=== PATIENT | female | born 1955 | race Caucasian/White ===

== ENCOUNTER 2017-03-14 06:41 | Inpatient (IN) | payer BC ==
[~2017-03-14 06:41] MED LIST: Acetaminophen 500 MG Tab PO SCH; Famotidine 20 MG/2 ML SDV IVPUSH SCH; Ketorolac 30 MG/ML SDV IVPUSH SCH; Scopolamine 1.5 MG Transdermal Patch TRDERM SCH; ceFAZolin 2 GM in Premix Bag 1 BAG IV SCH; oxyCODONE ER 20 MG TAB.ER PO SCH
[2017-03-14] MEDS: Lactated Ringers 1,000 ML IV SCH ×2 (06:59→12:37)
[2017-03-14] MEDS ORDERED: Ondansetron 4 MG/2 ML SDV ONE (07:26)
[2017-03-14] MEDS ORDERED: Midazolam 1 MG/ML 2 ML SDV ONE (07:26)
[2017-03-14] MEDS ORDERED: Lidocaine 2% 5 ML SDV ONE (07:26)
[2017-03-14] MEDS ORDERED: Propofol 200 MG/20 ML SDV ONE (07:26)
[2017-03-14] MEDS ORDERED: diphenhydrAMINE 50 MG/ML SDV ONE (07:26)
[2017-03-14] MEDS ORDERED: Dexamethasone 4 MG/ML 5 ML MDV ONE (07:26)
[2017-03-14] MEDS ORDERED: fentaNYL 100 MCG/2 ML SDV ONE (07:26)
[2017-03-14] MEDS ORDERED: Ropivacaine 49.25 ML, Ketorolac 30 MG, EPINEPHrine 0.5 MG, cloNIDine 80 MCG in Sodium C... INJECT ONE (07:40)
--- NOTE | 2017-03-14 07:54 | PCM.PREANE ---
Preanesthetic Assessment - Procedure Proposed Procedure: Right Total knee Arthroplasty - Anesthesia/Transfusion/Family Hx Anesthesia History: Prior Anesthesia Reaction Other Type of Anesthesia Reaction Comment: REports motion sickness with hyst, with GB they used patch-went well Family History of Anesthesia Reaction: No Transfusion History: No Prior Transfusion(s) Additional History: Used scopolamine in past with success. - Review of Systems General: No Symptoms Pulmonary: Other (sleep apnea ; Uses CPAP) Cardiovascular: No Symptoms Gastrointestinal: No Symptoms Neurological: No Symptoms Other: Reports: None - Physical Assessment NPO Status Date: 03/13/17 NPO Status Time: 23:00 O2 Sat by Pulse Oximetry: 97 Respiratory Rate: 16 Vital Signs: Last Vital Signs Temp 97.3 F 03/14/17 06:48 Pulse 85 03/14/17 06:48 Resp 16 03/14/17 06:48 BP 119/78 03/14/17 06:48 Pulse Ox 97 03/14/17 06:48 Height: 5 ft 4 in Weight: 207 lb ASA Class: 2 Mental Status: Alert & Oriented x3 Airway Class: Mallampati = 3 Thyro-Mental Finger Breadths: 3 Mouth Opening Finger Breadths: 2 ROM/Head Extension: Limited/Partial Lungs: Clear to Auscultation, Normal Respiratory Effort Cardiovascular: Regular Rate, Regular Rhythm, No Murmurs - Allergies Allergies/Adverse Reactions: Allergies Allergy/AdvReac Type Severity Reaction Status Date / Time No Known Drug Allergies Allergy Other Verified 03/14/17 07:37 - Blood Blood Available: Yes Product(s) Available: PRBC (T and S) - Anesthesia Plan Pre-Op Medication Ordered: Other (per surgeon cocktail ordered) - Acknowledgements Anesthesia Type Planned: Spinal (sedation as needed) Pt an Appropriate Candidate for the Planned Anesthesia: Yes Alternatives and Risks of Anesthesia Discussed w Pt/Guardian: Yes Pt/Guardian Understands and Agrees with Anesthesia Plan: Yes Additional Comments: present with interview and exam; consent signed. PreAnesthesia Questionnaire HEENT History: Reports: None Cardiovascular History: Reports: None Respiratory History: Reports: Sleep Apnea Other Respiratory History: uses CPAP Gastrointestinal History: Reports: None Genitourinary History: Reports: None BIOFUELS MANAGER History: Reports: None Other OB/BYN History: Hyst with frederick oophorectomy (hx: breast cancer) Musculoskeletal History: Reports: Fracture Other Musculoskeletal History: hx of compound fx of radius/ulna and fx of tib- fib Neurological History: Reports: None, Other (See Below) Other Neuro History: hx of motion sickness Psychiatric History: Reports: None Endocrine/Metabolic History: Reports: Obesity/BMI 30+ Hematologic History: Reports: None Immunologic History: Reports: None Oncologic (Cancer) History: Reports: Breast Dermatologic History: Reports: None - Past Surgical History Head Surgeries/Procedures: Reports: None HEENT Surgical History: Reports: Tonsillectomy Cardiovascular Surgical History: Reports: None Respiratory Surgical History: Reports: None GI Surgical History: Reports: Cholecystectomy, Colonoscopy Other GI Surgeries/Procedures: Lap Cholecystectomy Female Surgical History: Reports: Breast Biopsy, Breast Reduction, Hysterectomy Other Female Surgeries/Procedures: Vaginal Lap assisted hysterectomy with Bilateral oophorectomy, breast lumpectomy x3, hx breast cancer, breast reconstruction Endocrine Surgical History: Reports: None Neurological Surgical History: Reports: None Musculoskeletal Surgical History: Reports: Arthroscopic Knee, Shoulder Surgery Other Musculoskeletal Surgeries/Procedures:: Right Shoulder surgery Oncologic Surgical History: Reports: Biopsy of Breast Other Oncologic Surgeries/Procedures: Breast lumpectomy for cancer - SUBSTANCE USE Smoking Status *Q: Former Smoker Tobacco Use Within Last Twelve Months: Cigarettes Other Tobacco Use Within Last Twelve Months: Smoked 15 yrs, Quit ' Days Per Week of Alcohol Use: 1 Number of Drinks Per Day: 1 Total Drinks Per Week: 1 Recreational Drug Use History: No - HOME MEDS Home Medications: Home Meds Ascorbic Acid [Vitamin C] 1,000 mg PO DAILY 08/16/14 [History] Calcium Carbonate [Calcium] 1,250 mg PO DAILY 08/16/14 [History] Cholecalciferol (Vitamin D3) [Vitamin D3] 2,000 tab PO DAILY 08/16/14 [History] Fish Oil/Plover-3 Fatty Acids [Fish Oil 1,000 MG] 1 tab PO DAILY 08/16/14 [ History] Resveratrol 100 mg PO DAILY 11/20/14 [History] Turmeric Root Extract [Turmeric] 450 mg PO ASDIRECTED 10/07/15 [History] Cyanocobalamin (Vitamin B12) [Vitamin B12] 100 mcg PO DAILY 03/09/17 [History] Loperamide HCl [Imodium A-D] 1 tab PO ASDIRECTED PRN 03/09/17 [History] Phentermine HCl 30 mg PO DAILY 03/09/17 [History] metFORMIN HCl [Metformin HCl] 2 tab PO ACDINNER 03/09/17 [History] - CURRENT (IN HOUSE) MEDS Current Meds: Current Medications Acetaminophen (Tylenol Extra Strength) 1,000 mg PO ONARRIVE [facility] Last Admin: 03/14/17 07:00 Dose: 1,000 mg Famotidine (Pepcid) 40 mg IVPUSH ONARRIVE [facility] Last Admin: 03/14/17 07:00 Dose: 40 mg Cefazolin Sodium/Dextrose 2 gm (/ Premix) 50 mls @ 100 mls/hr IV ONCALL YUE Lactated Ringer's (Ringers, Lactated) 1,000 mls @ 100 mls/hr IV ASDIRECTED YUE Last Admin: 03/14/17 06:59 Dose: 100 mls/hr Ketorolac Tromethamine (Toradol) 30 mg IVPUSH ONARRIVE [facility] Last Admin: 03/14/17 07:02 Dose: 30 mg Oxycodone HCl (Oxycontin) 20 mg PO ONARRIVE [facility] Last Admin: 03/14/17 06:59 Dose: 20 mg Scopolamine (Transderm-Scop) 1.5 mg TRDERM ONARRIVE [facility] Last Admin: 03/14/17 07:01 Dose: 1.5 mg Tranexamic Acid (Cyklokapron) 4,000 mg IV SEECOMMENT YUE Discontinued Medications Dexamethasone (Dexamethasone) Confirm Administered Dose 20 mg .ROUTE .STK-MED ONE Stop: 03/14/17 07:27 Diphenhydramine HCl (Benadryl) Confirm Administered Dose 50 mg .ROUTE .STK-MED ONE Stop: 03/14/17 07:27 Fentanyl (Sublimaze) Confirm Administered Dose 100 mcg .ROUTE .STK-MED ONE Stop: 03/14/17 07:27 Ropivacaine 49.25 ml/Ketorolac Tromethamine 30 mg/Epinephrine HCl 0.5 mg/ Clonidine HCl 80 mcg/ Sodium Chloride 100 mls @ 50 mls/min INJECT ONETIME ONE Stop: 03/14/17 07:41 Lidocaine (Xylocaine-Mpf 2%) Confirm Administered Dose 5 ml .ROUTE .STK-MED ONE Stop: 03/14/17 07:27 Midazolam HCl (Versed 1 Mg/Ml) Confirm Administered Dose 2 mg .ROUTE .STK-MED ONE Stop: 03/14/17 07:27 Ondansetron HCl (Zofran) Confirm Administered Dose 4 mg .ROUTE .STK-MED ONE Stop: 03/14/17 07:27 Propofol (Diprivan 20 Ml) Confirm Administered Dose 800 mg .ROUTE .STK-MED ONE Stop: 03/14/17 07:27 Tranexamic Acid (Cyklokapron) Confirm Administered Dose 4,000 mg .ROUTE .STK- MED ONE Stop: 03/14/17 07:30
[2017-03-14] MEDS ORDERED: fentaNYL 100 MCG/2 ML SDV IVPUSH PRN (08:56)
[2017-03-14] MEDS ORDERED: Phenylephrine 1% 10 MG/ML SDV ONE (09:03)
[2017-03-14] MEDS ORDERED: Loperamide 2 MG Cap PO PRN (09:19)
[2017-03-14] MEDS ORDERED: diphenhydrAMINE 25 MG Cap PO PRN (09:24)
[2017-03-14] MEDS ORDERED: Prochlorperazine 5 MG in Sodium Chloride 0.9% 50 ML IV PRN (09:24)
[2017-03-14] MEDS ORDERED: Aluminum Hydroxide/Magnesium Hydroxide/Simethicone Susp 30 ML Cup PO PRN (09:24)
[2017-03-14] MEDS ORDERED: Bisacodyl 10 MG Supp RECTAL PRN (09:24)
[2017-03-14] MEDS ORDERED: Morphine 4 MG/ML Syringe IVPUSH PRN (09:24)
--- NOTE | 2017-03-14 09:34 | PCM.OPNOTE ---
- General Post-Op/Procedure Note Date of Surgery/Procedure: 03/14/17 Operative Procedure(s): R TKA Post-Op Diagnosis: DJD R knee Anesthesia Technique: Moderate Sedation, Spinal Primary Surgeon: Fadia Peck Associate Dean Of Students: Maryann Archibald Associate Dean Of Students: Jasper Álvarez in mLs: 50 Condition: Good Free Text/Narrative:: tt=38 min #[id number]
--- NOTE | 2017-03-14 10:02 | PCM.POSTAN ---
POST ANESTHESIA ASSESSMENT - MENTAL STATUS Mental Status: Alert, Oriented - RESPIRATORY Respiratory Status: Respiratory Rate WNL, Airway Patent, O2 Saturation Stable - CARDIOVASCULAR CV Status: Pulse Rate WNL, Blood Pressure Stable - GASTROINTESTINAL GI Status: No Symptoms - PAIN Pain Score: 0 (Spinal still intact) - POST OP HYDRATION Hydration Status: Adequate & Stable - OBSERVATIONS Free Text/Narrative:: Pt awake and talking, on RA with no reports of pain or nausea at this time.
[2017-03-14] MEDS: oxyCODONE 5 MG Tab PO PRN ×2 (11:53→18:00)
[2017-03-14] MEDS: Acetaminophen 1,000 MG in Premix Bag 1 BAG IV SCH ×2 (12:39→18:41)
[2017-03-14] MEDS ORDERED: Prochlorperazine 10 MG/2 ML SDV IV PRN (12:40)
--- NOTE | 2017-03-14 13:57 | OR ---
SURGEON: Fadia Peck MD DATE OF PROCEDURE: 03/14/2017 PREOPERATIVE DIAGNOSIS: Degenerative joint disease, right knee, tricompartmental. POSTOPERATIVE DIAGNOSIS: Degenerative joint disease, right knee, tricompartmental. PROCEDURES: Right total knee arthroplasty using patient specific instrumentation. SLOT TAG INSERTER: Maryann Archibald PA-C and Jasper Álvarez PA-C. ANESTHESIA: Spinal with sedation. ESTIMATED BLOOD LOSS: 50 mL. TOURNIQUET TIME: 38 minutes. COMPLICATIONS: None. DVT PROPHYLAXIS: PAS boot and BASILIA hose to the nonoperative leg. IMPLANTS USED: Marga Persona femoral component, size 8 narrow (LPS); tibial component size D; 10 mm all polyethylene articular surface; and 32 mm all-polyethylene patella. INTRAOPERATIVE FINDINGS: Showed severe tricompartmental degenerative changes with mild valgus deformity. She did have osteophyte formation in all three compartments along with grade 4 chondromalacia. No excess synovitis was noted. BRIEF HISTORY: Soni is a 62-year-old female who has had complaint of progressive right knee pain. She had failed conservative treatment. Due to her lack of response to conservative treatment, I did recommend surgical intervention. The risks and goals of procedure were discussed with the patient and were documented preoperatively. She agreed to proceed. DESCRIPTION OF PROCEDURE: The patient was properly identified and brought to the operating room. The patient was then transferred from the operating room cart and placed on the operating table in a supine position. Anesthesia was administered by the anesthesia staff. After adequate anesthesia was obtained, a well-padded tourniquet was applied to the surgical lower extremity. Lawrence catheter was placed. The lower extremity was then prepped in standard fashion using ChloraPrep solution. It was then sterilely draped. A time-out was performed to ensure correct site and procedure. Preoperative antibiotics were given along with one gram of tranexamic acid IV. The surgical site had been marked preoperatively. An Esmarch was used to exsanguinate the right lower extremity and the tourniquet was inflated. An incision was made over the anterior aspect of the knee. The subcutaneous tissues were dissected down to the level of the fascia. A medial parapatellar approach to the knee was made. A portion of the infrapatellar fat pad was then excised. The distal femur was then exposed. The femoral patient-specific cutting guide was then placed. Pins were also placed. The distal femoral cutting block was placed and the distal femoral cut was made. Instrumentation was then removed. Both Whitesides' line and the epicondylar axis were then marked with electrocautery. The 4-in-1 cutting block was placed. This was placed in a slightly externally rotated position, which corresponded well with the previously drawn lines. The cutting guide was then pinned into position. An Jose Manuel wing guide was used to check the depth of resection of our anterior condylar cut and it was felt that no notching would occur. The anterior condylar cut was then made followed by the posterior condylar cut. Both the posterior chamfer and anterior chamfer cuts were then made. The cutting block was then removed along with the excess bony remnants. We then turned our attention to the tibia. The anterior cruciate ligament and posterior cruciate ligament were released and a posterior cruciate ligament retractor was placed to allow the tibia to be pulled anteriorly. The tibial patient-specific guide was then placed on the proximal tibia. This fit anatomically. The pins were then placed. The proximal tibia cutting guide was then placed and screwed into position. The proximal tibial resection was then made with care being taken to protect the patellar tendon. The bony resection was then removed. The remainder of the medial and lateral meniscus were then excised. Care was taken to protect the popliteus tendon. The tibia was then sized to the appropriate size. The distal femur was then elevated. The posterior capsule was stripped off of the distal femur both medially and laterally. The posterior capsule along with the medial and lateral gutters were then injected with a standard mixture consisting of clonidine, epinephrine, Toradol, and Ropivacaine, unless any allergies were found preoperatively. The femoral component was then placed onto the distal femur in a slightly lateral position. This fit the femur well. A box cut was then made without difficulty. This was then removed. The tibial trial along with the polyethylene liner was then placed. The knee came easily into full extension and was stable to varus and valgus stressing both in full extension and flexion. Any additional releases were performed at this time. We then returned our attention to the patella. The patella was everted and towel clamps were used to hold the patella in position. It was resected to a 15 millimeter thickness. It was then sized to the appropriate size. It was prepared in the usual fashion after placing the predetermined size clamps. This was placed in a slightly superior and medial position. The clamp was then removed. The patellar trial button was placed. The knee was taken through a range of motion using the no-touch technique. The patella tracked centrally. A drop vijaya was then placed to check alignment. All instruments were then removed from the knee. The tibial sizer was then placed on the tibia. The tibia was prepared in the usual fashion using the reamer and broach. This was then removed. All bony surfaces were copiously irrigated with Pulsavac solution. They were then suctioned dry. Cement was prepared on the back table in the usual manner. Once it was prepared, the bone ends were again suctioned dry. The tibia was cemented into place first. This was malleted into position. Excess cement was then cleared. The femur was then placed in a similar manner. We placed the polyethylene trial into place and the knee was brought into full extension. An axial load was placed while keeping the knee in full extension. The patella button was also cemented into position and the clamp was used to hold this in place as the cement was allowed to cure. The wound was again copiously irrigated with saline solution using a Pulsavac distribution lineman. Following this 1 g of tranexamic acid was applied to the wound topically. After we had adequate curing of the cement, the knee was again taken through a range of motion. The size of the polyethylene was then determined. The polyethylene trial was then removed. The tibial tray was suctioned to make sure there was no remaining soft tissue or cement. Excess cement was cleared from around the edges of the prosthesis as well. The tourniquet was then deflated. We were able to observe for any excess bleeding and none was noted. Electrocautery was used to maintain hemostasis. An additional gram of tranexamic acid was given IV. The retractors were again placed and the predetermined polyethylene was then placed. This was locked into position without difficulty. The knee was again taken through a range of motion with no change from the prior exam. The fascial layer was closed with Number One Vicryl. The subcutaneous tissues were closed with 2-0 Vicryl. The skin was closed with negrito. Xeroform gauze was placed over the wound and a bulky dressing was applied. The patient was then awakened from anesthesia and transferred back to the operating room cart. They were brought to the recovery room in stable condition. All needle and sponge counts were correct. CRISTHIAN / MODL /[id number]
--- NOTE | 2017-03-14 14:22 | CR ---
EXAMINATION: Right knee HISTORY: Total knee arthroplasty COMPARISON: Radiographs dated 11/11/2016 TECHNIQUE: 2 views FINDINGS/IMPRESSION: Right total knee hardware is demonstrated in good position and alignment. Operat tereza soft tissue changes are noted.
[2017-03-14] MEDS: Ketorolac 30 MG/ML SDV IVPUSH SCH ×2 (15:15→21:33)
[2017-03-14] MEDS: ceFAZolin 2 GM in Premix Bag 1 BAG IV SCH ×2 (15:15→21:36)
--- NOTE | 2017-03-14 18:56 | PCM48HPAN ---
Post Anesthesia Note - EVALUATION WITHIN 48HRS OF ANESTHETIC Vital Signs in Normal Range: Yes Patient Participated in Evaluation: Yes Respiratory Function Stable: Yes Airway Patent: Yes Cardiovascular Function Stable: Yes Hydration Status Stable: Yes Pain Control Satisfactory: Yes Nausea and Vomiting Control Satisfactory: Yes Mental Status Recovered: Yes - COMMENTS/OBSERVATIONS Free Text/Narrative:: Pt is up to chair when I saw her. She is happy and pain has been manageable thus far. VSS
[2017-03-14] MEDS ORDERED: Aspirin 325 MG Tab PO SCH (21:00)
[2017-03-14] MEDS: oxyCODONE ER 20 MG TAB.ER PO SCH (21:32)
[2017-03-14] MEDS: Docusate Sodium 100 MG Cap PO SCH (21:32)
[2017-03-15] MEDS: Lactated Ringers 1,000 ML IV SCH (00:20)
[2017-03-15] MEDS: Acetaminophen 1,000 MG in Premix Bag 1 BAG IV SCH (00:24)
[2017-03-15] MEDS: Ketorolac 30 MG/ML SDV IVPUSH SCH (03:47)
[2017-03-15] MEDS: Acetaminophen 500 MG Tab PO SCH ×2 (06:00→12:59)
[2017-03-15] MEDS: oxyCODONE 5 MG Tab PO PRN ×3 (06:01→13:00)
--- NOTE | 2017-03-15 08:05 | PCM.SURGPN ---
<Maryann Archibald R - Last Filed: 03/15/17 08:01> - General Info Date of Service: 03/15/17 Date of Surgery/Procedure: 03/14/17 POD#: 1 Functional Status: Reports: Pain Controlled, Tolerating Diet, Ambulating - Review of Systems General: Reports: No Symptoms HEENT: Reports: No Symptoms Pulmonary: Reports: No Symptoms Cardiovascular: Reports: No Symptoms Gastrointestinal: Reports: No Symptoms. Denies: Nausea Musculoskeletal: Reports: Leg Pain Systems Review Comment:: Pt doing well, pain well controlled no nausea has been OOB ambulating would like to go home today if possible - Patient Data Vitals - Most Recent: Last Vital Signs Temp 97.8 F 03/15/17 04:00 Pulse 63 03/15/17 04:00 Resp 20 03/15/17 04:00 BP 113/56 L 03/15/17 04:00 Pulse Ox 97 03/15/17 04:00 Weight - Most Recent: 93.894 kg I&O - Last 24 Hours: Intake & Output 03/14/17 03/15/17 03/15/17 22:59 06:59 14:59 Intake Total 50 1200 Output Total 1775 Balance 50 -575 Lab Results Last 24 Hrs: Laboratory Results - last 24 hr 03/14/17 03/15/17 Range/Units 07:42 06:00 Hgb 12.9 (12.0-16.0) g/dL Hct 39.4 (36.0-46.0) % Blood Type A POSITIVE Antibody Screen NEGATIVE Med Orders - Current: Current Medications Acetaminophen (Tylenol Extra Strength) 1,000 mg PO Q6H [facility] Last Admin: 03/15/17 06:00 Dose: 1,000 mg Al Hydroxide/Mg Hydroxide (Mag-Al Plus) 30 ml PO Q4H PRN PRN Reason: indigestion Aspirin (Aspirin) 325 mg PO BID [facility] Bisacodyl (Dulcolax) 10 mg RECTAL DAILY PRN PRN Reason: Constipation Celecoxib (Celebrex) 200 mg PO BID [facility] Cholecalciferol (Vitamin D3) 2,000 units PO DAILY [facility] Diphenhydramine HCl (Benadryl) 25 - 50 mg PO Q6H PRN PRN Reason: Itching Docusate Sodium (Colace) 100 mg PO BID [facility] Last Admin: 03/14/17 21:32 Dose: 100 mg Famotidine (Pepcid) 40 mg PO DAILY [facility] Fish Oil (Fish Oil) 1 gm PO DAILY [facility] Lactated Ringer's (Ringers, Lactated) 1,000 mls @ 100 mls/hr IV ASDIRECTED [facility] Last Admin: 03/15/17 00:20 Dose: 100 mls/hr Loperamide HCl (Imodium) 2 mg PO ASDIRECTED PRN PRN Reason: Diarrhea Morphine Sulfate (Morphine) 1 - 3 mg IVPUSH Q3H PRN PRN Reason: Pain Oxycodone HCl (Oxycodone) 5 - 10 mg PO Q4H PRN PRN Reason: Pain Last Admin: 03/15/17 06:01 Dose: 5 mg Oxycodone HCl (Oxycontin) 20 mg PO Q12HR [facility] Last Admin: 03/14/17 21:32 Dose: 20 mg Calcium Carbonate 1, (250 Mg) 1 each PO DAILY [facility] Cyanocobalamin ( (Vitamin B12) 100 Mcg) 1 each PO DAILY [facility] Resveratrol [ (Resveratrol] 100 Mg) 1 each PO DAILY [facility] Prochlorperazine Edisylate (Compazine) 5 mg IV Q6H PRN PRN Reason: NAUSEA/VOMITING Scopolamine (Transderm-Scop) 1.5 mg TRDERM ONARRIVE [facility] Last Admin: 03/14/17 07:01 Dose: 1.5 mg Discontinued Medications Acetaminophen (Tylenol Extra Strength) 1,000 mg PO ONARRIVE [facility] Last Admin: 03/14/17 07:00 Dose: 1,000 mg Aspirin (Aspirin) 325 mg PO BID [facility] Dexamethasone (Dexamethasone) Confirm Administered Dose 20 mg .ROUTE .STK-MED ONE Stop: 03/14/17 07:27 Diphenhydramine HCl (Benadryl) Confirm Administered Dose 50 mg .ROUTE .STK-MED ONE Stop: 03/14/17 07:27 Famotidine (Pepcid) 40 mg IVPUSH ONARRIVE [facility] Last Admin: 03/14/17 07:00 Dose: 40 mg Fentanyl (Sublimaze) Confirm Administered Dose 100 mcg .ROUTE .STK-MED ONE Stop: 03/14/17 07:27 Fentanyl (Sublimaze) 50 mcg IVPUSH .Q5MIN PRN PRN Reason: Pain Cefazolin Sodium/Dextrose 2 gm (/ Premix) 50 mls @ 100 mls/hr IV ONCALL [facility] Ropivacaine 49.25 ml/Ketorolac Tromethamine 30 mg/Epinephrine HCl 0.5 mg/ Clonidine HCl 80 mcg/ Sodium Chloride 100 mls @ 50 mls/min INJECT ONETIME ONE Stop: 03/14/17 07:41 Acetaminophen 1,000 mg/ Premix 100 mls @ 400 mls/hr IV Q6H [facility] Stop: 03/15/17 01:00 Last Admin: 03/15/17 00:24 Dose: 400 mls/hr Cefazolin Sodium/Dextrose 2 gm (/ Premix) 50 mls @ 100 mls/hr IV Q8HR [facility] Stop: 03/14/17 22:29 Last Admin: 03/14/17 21:36 Dose: 100 mls/hr Ketorolac Tromethamine (Toradol) 30 mg IVPUSH ONARRIVE [facility] Last Admin: 03/14/17 07:02 Dose: 30 mg Ketorolac Tromethamine (Toradol) 30 mg IVPUSH Q6H [facility] Stop: 03/15/17 03:01 Last Admin: 03/15/17 03:47 Dose: 30 mg Lidocaine (Xylocaine-Mpf 2%) Confirm Administered Dose 5 ml .ROUTE .STK-MED ONE Stop: 03/14/17 07:27 Midazolam HCl (Versed 1 Mg/Ml) Confirm Administered Dose 2 mg .ROUTE .STK-MED ONE Stop: 03/14/17 07:27 Ondansetron HCl (Zofran) Confirm Administered Dose 4 mg .ROUTE .STK-MED ONE Stop: 03/14/17 07:27 Oxycodone HCl (Oxycontin) 20 mg PO ONARRIVE [facility] Last Admin: 03/14/17 06:59 Dose: 20 mg Phenylephrine HCl (Zia-Synephrine) Confirm Administered Dose 10 mg .ROUTE .STK- MED ONE Stop: 03/14/17 09:04 Propofol (Diprivan 20 Ml) Confirm Administered Dose 800 mg .ROUTE .STK-MED ONE Stop: 03/14/17 07:27 Tranexamic Acid (Cyklokapron) 4,000 mg IV SEECOMMENT [facility] Tranexamic Acid (Cyklokapron) Confirm Administered Dose 4,000 mg .ROUTE .STK- MED ONE Stop: 03/14/17 07:30 - Exam Wound/Incisions: Dressing Dry and Intact. No: No Drainage, Erythema General: Alert, Oriented Physical Findings Comment:: vss, afeb hgb 12.9 UO 2000+mL exam RLE dressing intact, no drainage/erythema at/ehl/gastroc 5/5, dp 2+, sensation intact distally - Problem List Review Problem List Initiated/Reviewed/Updated: Yes - My Orders Last 24 Hours: Active Orders 24 hr Category Date Time Status Patient Status [ADT] Routine ADT 03/14/17 09:22 Active Patient Status [ADT] Routine ADT 03/14/17 09:26 Active Activity as Tolerated [RC] .Routine Care 03/14/17 09:22 Active Dressing Change [Wound Care] [RC] ASDIRECTED Care 03/14/17 09:22 Active Neurovascular Check [RC] Q2HR Care 03/14/17 09:21 Active Notify Provider Vital Signs [RC] ASDIRECTED Care 03/14/17 09:22 Active Vital Signs [RC] Q4H Care 03/14/17 09:21 Active PT Evaluation and Treatment [CONS] Routine Cons 03/14/17 09:21 Active HEMOGLOBIN/HEMATOCRIT,HH [HEME] DAILY Lab 03/16/17 06:00 Ordered HEMOGLOBIN/HEMATOCRIT,HH [HEME] DAILY Lab 03/17/17 06:00 Ordered Acetaminophen [Tylenol Extra Strength] Med 03/15/17 07:00 Active 1,000 mg PO Q6H Alum Hydrox/Mag Hydrox/Simeth [Mag-Al Plus] Med 03/14/17 09:24 Active 30 ml PO Q4H PRN Aspirin Med 03/15/17 09:00 Active 325 mg PO BID Bisacodyl [Dulcolax] Med 03/14/17 09:24 Active 10 mg RECTAL DAILY PRN Celecoxib [CeleBREX] Med 03/15/17 09:00 Active 200 mg PO BID Cholecalciferol (Vitamin D3) [Vitamin D3] Med 03/15/17 09:00 Active 2,000 units PO DAILY Docusate Sodium [Colace] Med 03/14/17 21:00 Active 100 mg PO BID Famotidine [Pepcid] Med 03/15/17 09:00 Active 40 mg PO DAILY Fish Oil/[place]-3 Fatty Acids [Fish Oil] Med 03/15/17 09:00 Active 1 gm PO DAILY Loperamide [Imodium] Med 03/14/17 09:19 Active 2 mg PO ASDIRECTED PRN Morphine Med 03/14/17 09:24 Active 1 - 3 mg IVPUSH Q3H PRN Patient's Own Medication [Ptom] Med 03/15/17 09:00 Active 1 each PO DAILY Patient's Own Medication [Ptom] Med 03/15/17 09:00 Active 1 each PO DAILY Patient's Own Medication [Ptom] Med 03/15/17 09:00 Active 1 each PO DAILY Prochlorperazine [Compazine] Med 03/14/17 12:40 Active 5 mg IV Q6H PRN diphenhydrAMINE [Benadryl] Med 03/14/17 09:24 Active 25 - 50 mg PO Q6H PRN oxyCODONE Med 03/14/17 09:24 Active 5 - 10 mg PO Q4H PRN oxyCODONE ER [OxyCONTIN] Med 03/14/17 21:00 Active 20 mg PO Q12HR Ice Therapy [OM.PC] Routine Oth 03/14/17 09:22 Ordered Medication Orders Acetaminophen (Tylenol Extra Strength) 1,000 mg PO Q6H [facility] Last Admin: 03/15/17 06:00 Dose: 1,000 mg Al Hydroxide/Mg Hydroxide (Mag-Al Plus) 30 ml PO Q4H PRN PRN Reason: indigestion Aspirin (Aspirin) 325 mg PO BID [facility] Bisacodyl (Dulcolax) 10 mg RECTAL DAILY PRN PRN Reason: Constipation Celecoxib (Celebrex) 200 mg PO BID [facility] Cholecalciferol (Vitamin D3) 2,000 units PO DAILY [facility] Diphenhydramine HCl (Benadryl) 25 - 50 mg PO Q6H PRN PRN Reason: Itching Docusate Sodium (Colace) 100 mg PO BID [facility] Last Admin: 03/14/17 21:32 Dose: 100 mg Famotidine (Pepcid) 40 mg PO DAILY [facility] Fish Oil (Fish Oil) 1 gm PO DAILY [facility] Lactated Ringer's (Ringers, Lactated) 1,000 mls @ 100 mls/hr IV ASDIRECTED [facility] Last Admin: 03/15/17 00:20 Dose: 100 mls/hr Infusion: 03/14/17 22:37 Dose: 100 mls/hr Admin: 03/14/17 12:37 Dose: 100 mls/hr Infusion: 03/14/17 12:37 Dose: 100 mls/hr Admin: 03/14/17 06:59 Dose: 100 mls/hr Loperamide HCl (Imodium) 2 mg PO ASDIRECTED PRN PRN Reason: Diarrhea Morphine Sulfate (Morphine) 1 - 3 mg IVPUSH Q3H PRN PRN Reason: Pain Oxycodone HCl (Oxycodone) 5 - 10 mg PO Q4H PRN PRN Reason: Pain Last Admin: 03/15/17 06:01 Dose: 5 mg Admin: 03/14/17 18:00 Dose: 5 mg Admin: 03/14/17 11:53 Dose: 10 mg Oxycodone HCl (Oxycontin) 20 mg PO Q12HR [facility] Last Admin: 03/14/17 21:32 Dose: 20 mg Calcium Carbonate 1, (250 Mg) 1 each PO DAILY [facility] Cyanocobalamin ( (Vitamin B12) 100 Mcg) 1 each PO DAILY [facility] Resveratrol [ (Resveratrol] 100 Mg) 1 each PO DAILY [facility] Prochlorperazine Edisylate (Compazine) 5 mg IV Q6H PRN PRN Reason: NAUSEA/VOMITING Scopolamine (Transderm-Scop) 1.5 mg TRDERM ONARRIVE [facility] Last Admin: 03/14/17 07:01 Dose: 1.5 mg - Assessment Assessment (Free Text/Narrative):: POD#1 R TKA - Plan Plan (Free Text/Narrative):: DC IV fluids DC jay ASA 325mg PO BID as DVT prophylaxis continue activity as tolerated if pt does well with PT, will discharge to home today will need dressing changed to Aquacel prior to discharge <Fadia Peck R - Last Filed: 03/15/17 13:46> - Patient Data Vitals - Most Recent: Last Vital Signs Temp 97.1 F 03/15/17 12:06 Pulse 68 03/15/17 12:06 Resp 20 03/15/17 12:06 BP 126/75 03/15/17 12:06 Pulse Ox 96 03/15/17 12:06 I&O - Last 24 Hours: Intake & Output 03/14/17 03/15/17 03/15/17 22:59 06:59 14:59 Intake Total 50 1200 Output Total 1775 Balance 50 -575 Lab Results Last 24 Hrs: Laboratory Results - last 24 hr 03/15/17 Range/Units 06:00 Hgb 12.9 (12.0-16.0) g/dL Hct 39.4 (36.0-46.0) % Med Orders - Current: Current Medications Acetaminophen (Tylenol Extra Strength) 1,000 mg PO Q6H [facility] Last Admin: 03/15/17 12:59 Dose: 1,000 mg Al Hydroxide/Mg Hydroxide (Mag-Al Plus) 30 ml PO Q4H PRN PRN Reason: indigestion Aspirin (Aspirin) 325 mg PO BID [facility] Last Admin: 03/15/17 09:45 Dose: 325 mg Bisacodyl (Dulcolax) 10 mg RECTAL DAILY PRN PRN Reason: Constipation Celecoxib (Celebrex) 200 mg PO BID [facility] Last Admin: 03/15/17 09:46 Dose: 200 mg Cholecalciferol (Vitamin D3) 2,000 units PO DAILY [facility] Last Admin: 03/15/17 09:45 Dose: 2,000 units Diphenhydramine HCl (Benadryl) 25 - 50 mg PO Q6H PRN PRN Reason: Itching Docusate Sodium (Colace) 100 mg PO BID [facility] Last Admin: 03/15/17 09:42 Dose: 100 mg Famotidine (Pepcid) 40 mg PO DAILY [facility] Last Admin: 03/15/17 09:50 Dose: 40 mg Fish Oil (Fish Oil) 1 gm PO DAILY [facility] Last Admin: 03/15/17 09:43 Dose: 1 gm Loperamide HCl (Imodium) 2 mg PO ASDIRECTED PRN PRN Reason: Diarrhea Morphine Sulfate (Morphine) 1 - 3 mg IVPUSH Q3H PRN PRN Reason: Pain Oxycodone HCl (Oxycodone) 5 - 10 mg PO Q4H PRN PRN Reason: Pain Last Admin: 03/15/17 13:00 Dose: 10 mg Oxycodone HCl (Oxycontin) 20 mg PO Q12HR [facility] Last Admin: 03/15/17 09:43 Dose: 20 mg Calcium Carbonate 1, (250 Mg) 1 each PO DAILY [facility] Last Admin: 03/15/17 10:48 Dose: Not Given Cyanocobalamin ( (Vitamin B12) 100 Mcg) 1 each PO DAILY [facility] Last Admin: 03/15/17 10:48 Dose: Not Given Resveratrol [ (Resveratrol] 100 Mg) 1 each PO DAILY [facility] Last Admin: 03/15/17 10:48 Dose: Not Given Prochlorperazine Edisylate (Compazine) 5 mg IV Q6H PRN PRN Reason: NAUSEA/VOMITING Scopolamine (Transderm-Scop) 1.5 mg TRDERM ONARRIVE [facility] Last Admin: 03/14/17 07:01 Dose: 1.5 mg Sodium Chloride (Saline Flush) 10 ml FLUSH ASDIRECTED PRN PRN Reason: Keep Vein Open Sodium Chloride (Saline Flush) 2.5 ml FLUSH ASDIRECTED PRN PRN Reason: Keep Vein Open Discontinued Medications Acetaminophen (Tylenol Extra Strength) 1,000 mg PO ONARRIVE [facility] Last Admin: 03/14/17 07:00 Dose: 1,000 mg Aspirin (Aspirin) 325 mg PO BID [facility] Dexamethasone (Dexamethasone) Confirm Administered Dose 20 mg .ROUTE .STK-MED ONE Stop: 03/14/17 07:27 Diphenhydramine HCl (Benadryl) Confirm Administered Dose 50 mg .ROUTE .STK-MED ONE Stop: 03/14/17 07:27 Famotidine (Pepcid) 40 mg IVPUSH ONARRIVE [facility] Last Admin: 03/14/17 07:00 Dose: 40 mg Fentanyl (Sublimaze) Confirm Administered Dose 100 mcg .ROUTE .STK-MED ONE Stop: 03/14/17 07:27 Fentanyl (Sublimaze) 50 mcg IVPUSH .Q5MIN PRN PRN Reason: Pain Cefazolin Sodium/Dextrose 2 gm (/ Premix) 50 mls @ 100 mls/hr IV ONCALL [facility] Ropivacaine 49.25 ml/Ketorolac Tromethamine 30 mg/Epinephrine HCl 0.5 mg/ Clonidine HCl 80 mcg/ Sodium Chloride 100 mls @ 50 mls/min INJECT ONETIME ONE Stop: 03/14/17 07:41 Lactated Ringer's (Ringers, Lactated) 1,000 mls @ 100 mls/hr IV ASDIRECTED [facility] Last Admin: 03/15/17 00:20 Dose: 100 mls/hr Acetaminophen 1,000 mg/ Premix 100 mls @ 400 mls/hr IV Q6H [facility] Stop: 03/15/17 01:00 Last Admin: 03/15/17 00:24 Dose: 400 mls/hr Cefazolin Sodium/Dextrose 2 gm (/ Premix) 50 mls @ 100 mls/hr IV Q8HR [facility] Stop: 03/14/17 22:29 Last Admin: 03/14/17 21:36 Dose: 100 mls/hr Ketorolac Tromethamine (Toradol) 30 mg IVPUSH ONARRIVE [facility] Last Admin: 03/14/17 07:02 Dose: 30 mg Ketorolac Tromethamine (Toradol) 30 mg IVPUSH Q6H [facility] Stop: 03/15/17 03:01 Last Admin: 03/15/17 03:47 Dose: 30 mg Lidocaine (Xylocaine-Mpf 2%) Confirm Administered Dose 5 ml .ROUTE .STK-MED ONE Stop: 03/14/17 07:27 Midazolam HCl (Versed 1 Mg/Ml) Confirm Administered Dose 2 mg .ROUTE .STK-MED ONE Stop: 03/14/17 07:27 Ondansetron HCl (Zofran) Confirm Administered Dose 4 mg .ROUTE .STK-MED ONE Stop: 03/14/17 07:27 Oxycodone HCl (Oxycontin) 20 mg PO ONARRIVE [facility] Last Admin: 03/14/17 06:59 Dose: 20 mg Phenylephrine HCl (Zia-Synephrine) Confirm Administered Dose 10 mg .ROUTE .STK- MED ONE Stop: 03/14/17 09:04 Propofol (Diprivan 20 Ml) Confirm Administered Dose 800 mg .ROUTE .STK-MED ONE Stop: 03/14/17 07:27 Tranexamic Acid (Cyklokapron) 4,000 mg IV SEECOMMENT [facility] Tranexamic Acid (Cyklokapron) Confirm Administered Dose 4,000 mg .ROUTE .STK- MED ONE Stop: 03/14/17 07:30 - My Orders Last 24 Hours: Active Orders 24 hr Category Date Time Status Ready for Discharge [RC] PER UNIT ROUTINE Care 03/15/17 12:26 Active Remove Jay Catheter [Urinary Catheter Removal] [RC] Care 03/15/17 08:22 Active Per Unit Routine HEMOGLOBIN/HEMATOCRIT,HH [HEME] DAILY Lab 03/16/17 06:00 Ordered HEMOGLOBIN/HEMATOCRIT,HH [HEME] DAILY Lab 03/17/17 06:00 Ordered Acetaminophen [Tylenol Extra Strength] Med 03/15/17 07:00 Active 1,000 mg PO Q6H Aspirin Med 03/15/17 09:00 Active 325 mg PO BID Celecoxib [CeleBREX] Med 03/15/17 09:00 Active 200 mg PO BID Cholecalciferol (Vitamin D3) [Vitamin D3] Med 03/15/17 09:00 Active 2,000 units PO DAILY Docusate Sodium [Colace] Med 03/14/17 21:00 Active 100 mg PO BID Famotidine [Pepcid] Med 03/15/17 09:00 Active 40 mg PO DAILY Fish Oil/[place]-3 Fatty Acids [Fish Oil] Med 03/15/17 09:00 Active 1 gm PO DAILY Patient's Own Medication [Ptom] Med 03/15/17 09:00 Active 1 each PO DAILY Patient's Own Medication [Ptom] Med 03/15/17 09:00 Active 1 each PO DAILY Patient's Own Medication [Ptom] Med 03/15/17 09:00 Active 1 each PO DAILY Sodium Chloride 0.9% [Saline Flush] Med 03/15/17 08:22 Active 10 ml FLUSH ASDIRECTED PRN Sodium Chloride 0.9% [Saline Flush] Med 03/15/17 08:22 Active 2.5 ml FLUSH ASDIRECTED PRN oxyCODONE ER [OxyCONTIN] Med 03/14/17 21:00 Active 20 mg PO Q12HR Convert IV to Saline Lock [OM.PC] Routine Oth 03/15/17 08:22 Ordered Medication Orders Acetaminophen (Tylenol Extra Strength) 1,000 mg PO Q6H [facility] Last Admin: 03/15/17 12:59 Dose: 1,000 mg Admin: 03/15/17 06:00 Dose: 1,000 mg Al Hydroxide/Mg Hydroxide (Mag-Al Plus) 30 ml PO Q4H PRN PRN Reason: indigestion Aspirin (Aspirin) 325 mg PO BID [facility] Last Admin: 03/15/17 09:45 Dose: 325 mg Bisacodyl (Dulcolax) 10 mg RECTAL DAILY PRN PRN Reason: Constipation Celecoxib (Celebrex) 200 mg PO BID [facility] Last Admin: 03/15/17 09:46 Dose: 200 mg Cholecalciferol (Vitamin D3) 2,000 units PO DAILY [facility] Last Admin: 03/15/17 09:45 Dose: 2,000 units Diphenhydramine HCl (Benadryl) 25 - 50 mg PO Q6H PRN PRN Reason: Itching Docusate Sodium (Colace) 100 mg PO BID [facility] Last Admin: 03/15/17 09:42 Dose: 100 mg Admin: 03/14/17 21:32 Dose: 100 mg Famotidine (Pepcid) 40 mg PO DAILY [facility] Last Admin: 03/15/17 09:50 Dose: 40 mg Fish Oil (Fish Oil) 1 gm PO DAILY [facility] Last Admin: 03/15/17 09:43 Dose: 1 gm Loperamide HCl (Imodium) 2 mg PO ASDIRECTED PRN PRN Reason: Diarrhea Morphine Sulfate (Morphine) 1 - 3 mg IVPUSH Q3H PRN PRN Reason: Pain Oxycodone HCl (Oxycodone) 5 - 10 mg PO Q4H PRN PRN Reason: Pain Last Admin: 03/15/17 13:00 Dose: 10 mg Admin: 03/15/17 08:58 Dose: 5 mg Admin: 03/15/17 06:01 Dose: 5 mg Admin: 03/14/17 18:00 Dose: 5 mg Admin: 03/14/17 11:53 Dose: 10 mg Oxycodone HCl (Oxycontin) 20 mg PO Q12HR [facility] Last Admin: 03/15/17 09:43 Dose: 20 mg Admin: 03/14/17 21:32 Dose: 20 mg Calcium Carbonate 1, (250 Mg) 1 each PO DAILY [facility] Last Admin: 03/15/17 10:48 Dose: Cyanocobalamin ( (Vitamin B12) 100 Mcg) 1 each PO DAILY [facility] Last Admin: 03/15/17 10:48 Dose: Resveratrol [ (Resveratrol] 100 Mg) 1 each PO DAILY [facility] Last Admin: 03/15/17 10:48 Dose: Prochlorperazine Edisylate (Compazine) 5 mg IV Q6H PRN PRN Reason: NAUSEA/VOMITING Scopolamine (Transderm-Scop) 1.5 mg TRDERM ONARRIVE [facility] Last Admin: 03/14/17 07:01 Dose: 1.5 mg Sodium Chloride (Saline Flush) 10 ml FLUSH ASDIRECTED PRN PRN Reason: Keep Vein Open Sodium Chloride (Saline Flush) 2.5 ml FLUSH ASDIRECTED PRN PRN Reason: Keep Vein Open - Plan Plan (Free Text/Narrative):: 1300 Patient seen and examined. Agree with above note. Patient is currently sitting up in chair. Her pain is well controlled with the oral pain medication. She has been up walking with physical therapy. She has no other complaints. Her hemoglobin remained stable. Exam of the right knee shows a dressing to be dry and intact. She has no calf tenderness. AT/EHL/gastroc 5/5. Sensation grossly intact. DP/PT pulses 2+. 1. Dressing change today 2. Discharge home later today 3. Continue outpatient physical therapy 4. Follow-up as directed giorgi
[2017-03-15] MEDS ORDERED: Sodium Chloride 0.9% 2.5 ML Syringe FLUSH PRN (08:22)
[2017-03-15] MEDS ORDERED: Sodium Chloride 0.9% 10 ML Syringe FLUSH PRN (08:22)
[2017-03-15] MEDS ORDERED: Fish Oil/Omega-3 Fatty Acids 1 Gm Cap PO SCH (09:00)
[2017-03-15] MEDS ORDERED: Famotidine 20 MG Tab PO SCH (09:00)
[2017-03-15] MEDS ORDERED: Celecoxib 100 MG Cap PO SCH (09:00)
[2017-03-15] MEDS ORDERED: CALCIUM CARBONATE 1250 MG PO SCH (09:00)
[2017-03-15] MEDS ORDERED: CYANOCOBALAMIN 100 MCG PO SCH (09:00)
[2017-03-15] MEDS ORDERED: RESVERATROL 100 MG PO SCH (09:00)
[2017-03-15] MEDS ORDERED: Cholecalciferol (Vitamin D3) 1,000 Unit Tab PO SCH (09:00)
[2017-03-15] MEDS ORDERED: Aspirin 325 MG Tab PO SCH (09:00)
[2017-03-15] MEDS: Docusate Sodium 100 MG Cap PO SCH (09:42)
[2017-03-15] MEDS: oxyCODONE ER 20 MG TAB.ER PO SCH (09:43)
[2017-03-15 12:08] VITALS: BP 126/75
== END 2017-03-15 14:10 | disposition home or self-care (01) | DRG 302 ==
LOC: MW.SDS 06:41 → MW.MS 07:52 → EDSTATUS 08:00
PROVIDERS: ADMIT Orthopaedic Surgery; ATTEND Orthopaedic Surgery
PROC: 0SRC0J9 Replacement of Right Knee Joint with Synthetic Substitute, Cemented, Open Approach (ICD-10-PCS; principal; 2017-03-14)
DX: M17.11 Unilateral primary osteoarthritis, right knee (principal); M21.061 Valgus deformity, not elsewhere classified, right knee; M25.761 Osteophyte, right knee; M94.261 Chondromalacia, right knee; Z79.899 Other long term (current) drug therapy; Z85.3 Personal history of malignant neoplasm of breast
CPT/HCPCS: 01402; 36415; 73560-26-RT; 73560-RT; 85014; 85018; 86850; 86900; 86901; 88305; 88311; 97110-GP; 97116-GP; 97161-GP; A9270-GY; C1713; C1776; J0171; J0690; J0735; J1100; J1200; J1885; J2250; J2370; J2405; J2704; J2795; J3010; J7050; J7120

== ENCOUNTER 2017-06-13 06:28 | Day surgery (SDC) | payer BC ==
[~2017-06-13 06:28] MED LIST changes: -Acetaminophen 500 MG Tab PO SCH; -Famotidine 20 MG/2 ML SDV IVPUSH SCH; -Ketorolac 30 MG/ML SDV IVPUSH SCH; +Lactated Ringers 1,000 ML IV SCH; -Scopolamine 1.5 MG Transdermal Patch TRDERM SCH; -ceFAZolin 2 GM in Premix Bag 1 BAG IV SCH; -oxyCODONE ER 20 MG TAB.ER PO SCH
[2017-06-13] MEDS ORDERED: Scopolamine 1.5 MG Transdermal Patch TRDERM PRN (07:24)
--- NOTE | 2017-06-13 07:26 | PCM.PREANE ---
Preanesthetic Assessment - Anesthesia/Transfusion/Family Hx Anesthesia History: Prior Anesthesia Reaction Other Type of Anesthesia Reaction Comment: "nauseated after surgery" Family History of Anesthesia Reaction: No Transfusion History: No Prior Transfusion(s) - Review of Systems General: No Symptoms Pulmonary: No Symptoms Cardiovascular: No Symptoms Gastrointestinal: No Symptoms Neurological: No Symptoms Other: Reports: None - Physical Assessment NPO Status Date: 06/12/17 O2 Sat by Pulse Oximetry: 98 Respiratory Rate: 16 Vital Signs: Last Vital Signs Temp 36.2 C 06/13/17 06:46 Pulse 86 06/13/17 06:46 Resp 16 06/13/17 06:46 BP 118/76 06/13/17 06:46 Pulse Ox 98 06/13/17 06:46 Height: 1.63 m Weight: 84.822 kg ASA Class: 2 Mental Status: Alert & Oriented x3 Dentition: Reports: Normal Dentition ROM/Head Extension: Full Lungs: Clear to Auscultation, Normal Respiratory Effort Cardiovascular: Regular Rate, Regular Rhythm - Allergies Allergies/Adverse Reactions: Allergies Allergy/AdvReac Type Severity Reaction Status Date / Time adhesive tape Allergy Redness Verified 06/08/17 09:53 No Known Drug Allergies Allergy Other Verified 03/14/17 07:37 - Anesthesia Plan Pre-Op Medication Ordered: Other (scop patch) - Acknowledgements Anesthesia Type Planned: General Anesthesia Pt an Appropriate Candidate for the Planned Anesthesia: Yes Alternatives and Risks of Anesthesia Discussed w Pt/Guardian: Yes Pt/Guardian Understands and Agrees with Anesthesia Plan: Yes PreAnesthesia Questionnaire HEENT History: Reports: None Cardiovascular History: Reports: None Other Cardiovascular History: Recent episode of chest pain while traveling, EKG in [place], reports hx: Phen-phen use dieting Respiratory History: Reports: Sleep Apnea Other Respiratory History: uses CPAP Gastrointestinal History: Reports: None Genitourinary History: Reports: None ACCOUNT ASSISTANT History: Reports: Other OB/BYN History: Hyst with frederick oophorectomy (hx: breast cancer) Musculoskeletal History: Reports: Fracture Other Musculoskeletal History: hx of compound fx of radius/ulna and fx of tib- fib Neurological History: Reports: Other (See Below) Other Neuro History: hx of motion sickness Psychiatric History: Reports: None Endocrine/Metabolic History: Reports: Obesity/BMI 30+ Hematologic History: Reports: None Immunologic History: Reports: None Oncologic (Cancer) History: Reports: Breast Dermatologic History: Reports: None - Past Surgical History Head Surgeries/Procedures: Reports: None HEENT Surgical History: Reports: Tonsillectomy Cardiovascular Surgical History: Reports: None Respiratory Surgical History: Reports: None GI Surgical History: Reports: Cholecystectomy, Colonoscopy Other GI Surgeries/Procedures: Lap Cholecystectomy Female Surgical History: Reports: Breast Biopsy, Breast Reduction, Hysterectomy Other Female Surgeries/Procedures: Vaginal Lap assisted hysterectomy with Bilateral oophorectomy, breast lumpectomy x3, hx breast cancer, breast reconstruction Endocrine Surgical History: Reports: None Neurological Surgical History: Reports: None Musculoskeletal Surgical History: Reports: Arthroscopic Knee, Shoulder Surgery Other Musculoskeletal Surgeries/Procedures:: Right Shoulder surgery, rt TKA Oncologic Surgical History: Reports: Biopsy of Breast Other Oncologic Surgeries/Procedures: Breast lumpectomy for cancer - SUBSTANCE USE Smoking Status *Q: Former Smoker Tobacco Use Within Last Twelve Months: Cigarettes Other Tobacco Use Within Last Twelve Months: Smoked 15 yrs, Quit ' Second Hand Smoke Exposure: No Days Per Week of Alcohol Use: 1 Number of Drinks Per Day: 1 Total Drinks Per Week: 1 Recreational Drug Use History: No - HOME MEDS Home Medications: Home Meds Ascorbic Acid [Vitamin C] 1,000 mg PO DAILY 08/16/14 [History] Calcium Carbonate [Calcium] 1,250 mg PO DAILY 08/16/14 [History] Cholecalciferol (Vitamin D3) [Vitamin D3] 2,000 units PO DAILY 08/16/14 [History ] Resveratrol 100 mg PO DAILY 11/20/14 [History] Turmeric Root Extract [Turmeric] 450 mg PO ASDIRECTED 10/07/15 [History] Cyanocobalamin (Vitamin B12) [Vitamin B12] 100 mcg PO DAILY 03/09/17 [History] Loperamide HCl [Imodium A-D] 1 tab PO ASDIRECTED PRN 03/09/17 [History] metFORMIN HCl [Metformin HCl] 2 tab PO ACDINNER 03/09/17 [History] Acetaminophen [Tylenol Extra Strength] 1,000 mg PO Q6H PRN 06/08/17 [History] - CURRENT (IN HOUSE) MEDS Current Meds: Current Medications Lactated Ringer's (Ringers, Lactated) 1,000 mls @ 100 mls/hr IV ASDIRECTED YUE Last Admin: 06/13/17 06:50 Dose: 100 mls/hr
[2017-06-13] MEDS ORDERED: Ondansetron 4 MG/2 ML SDV ONE (07:34)
[2017-06-13] MEDS ORDERED: Propofol 200 MG/20 ML SDV ONE (07:34)
[2017-06-13] MEDS ORDERED: Succinylcholine/Normal Saline 200 MG/10 ML Syringe ONE (07:34)
[2017-06-13] MEDS ORDERED: fentaNYL 100 MCG/2 ML SDV ONE ×2 (07:34→08:18)
[2017-06-13] MEDS ORDERED: Midazolam 1 MG/ML 2 ML SDV ONE (07:34)
[2017-06-13] MEDS ORDERED: Rocuronium 10 MG/ML 10 ML Syringe ONE (07:34)
[2017-06-13] MEDS ORDERED: Dexamethasone 4 MG/ML 5 ML MDV ONE (07:34)
[2017-06-13] MEDS ORDERED: diphenhydrAMINE 50 MG/ML SDV ONE (07:46)
--- NOTE | 2017-06-13 08:30 | PCM.OPNOTE ---
- General Post-Op/Procedure Note Date of Surgery/Procedure: 06/13/17 Operative Procedure(s): R TKA manipulation Post-Op Diagnosis: Arthrofibrosis R TKA Anesthesia Technique: General ET Tube Primary Surgeon: Fadia Peck [employer] Manager: Maryann Archibald in mLs: 0 Condition: Good Free Text/Narrative:: #[id number]
[2017-06-13] MEDS ORDERED: Ketorolac 30 MG/ML SDV IVPUSH ONE (09:07)
--- NOTE | 2017-06-13 09:08 | PCM.POSTAN ---
POST ANESTHESIA ASSESSMENT - MENTAL STATUS Mental Status: Alert, Oriented - RESPIRATORY Respiratory Status: Respiratory Rate WNL, Airway Patent, O2 Saturation Stable - CARDIOVASCULAR CV Status: Pulse Rate WNL, Blood Pressure Stable - GASTROINTESTINAL GI Status: No Symptoms - POST OP HYDRATION Hydration Status: Adequate & Stable
[2017-06-13] MEDS ORDERED: Ketorolac 30 MG/ML SDV ONE (09:14)
[2017-06-13 09:36] VITALS: BP 122/64
--- NOTE | 2017-06-13 09:36 | PCM48HPAN ---
Post Anesthesia Note - EVALUATION WITHIN 48HRS OF ANESTHETIC Vital Signs in Normal Range: Yes Patient Participated in Evaluation: Yes Respiratory Function Stable: Yes Airway Patent: Yes Cardiovascular Function Stable: Yes Hydration Status Stable: Yes Pain Control Satisfactory: Yes Nausea and Vomiting Control Satisfactory: Yes Mental Status Recovered: Yes
--- NOTE | 2017-06-13 11:05 | OR ---
SURGEON: Fadia Peck MD DATE OF PROCEDURE: 06/13/2017 PREOPERATIVE DIAGNOSIS: Arthrofibrosis of right knee, status post right total knee arthroplasty. POSTOPERATIVE DIAGNOSIS: Arthrofibrosis of right knee, status post right total knee arthroplasty. PROCEDURE: Right total knee arthroplasty manipulation. SCHOOL SUPERVISOR: Maryann Archibald PA-C. ANESTHESIA: General. ESTIMATED BLOOD LOSS: 0 mL. TOURNIQUET TIME: 0 minutes. COMPLICATIONS: None. DVT PROPHYLAXIS: Not indicated. IMPLANTS USED: None. BRIEF HISTORY: Soni is a 62-year-old female who previously underwent a right total knee arthroplasty. She did well following the surgery; however, has developed restricted range of motion despite persistent physical therapy. Due to her lack of response to conservative treatment, I did recommend surgical intervention. The risks and goals of procedure were discussed with the patient and were documented preoperatively. She agreed to proceed. DESCRIPTION OF PROCEDURE: The patient was properly identified and brought to the operating room. She was transferred from the OR cart and placed on the operating table in supine position. General anesthesia was administered. After adequate anesthesia was obtained, including paralysis, a time-out was performed to ensure correct site and procedure. Preoperative antibiotics were not given. The surgical site had been marked preoperatively. The range of motion was inspected. She was lacking 5 degrees of full extension and had approximately 90 degrees of flexion. Gentle downward pressure was applied to the low leg while keeping the hip and knee in a flexed position. I was able to palpate scar adhesions, releasing within the knee capsule. Upon completion of the manipulation, she had flexion to nearly 120 degrees. With extension, I did apply a downward pressure on the knee while the knee was fully extended. I was able to gain a few additional degrees of extension as well. Her knee was inspected at completion. She did have a mild joint effusion. She was stable to varus and valgus stressing. She was awakened from her anesthetic and transferred back to the operating room cart. She was brought to recovery room in stable condition. All needle and sponge counts were correct. CRISTHIAN / MODL /[id number]
== END 2017-06-13 09:44 | disposition home or self-care (01) ==
LOC: MW.SDS 06:28
PROVIDERS: ATTEND Orthopaedic Surgery
DX: M24.661 Ankylosis, right knee (principal); K52.9 Noninfective gastroenteritis and colitis, unspecified; M16.11 Unilateral primary osteoarthritis, right hip; H91.90 Unspecified hearing loss, unspecified ear; I83.90 Asymptomatic varicose veins of unspecified lower extremity; E89.41 Symptomatic postprocedural ovarian failure; G47.33 Obstructive sleep apnea (adult) (pediatric); E66.9 Obesity, unspecified; Z68.32 Body mass index [BMI] 32.0-32.9, adult; Z85.3 Personal history of malignant neoplasm of breast; Z87.891 Personal history of nicotine dependence; Z79.84 Long term (current) use of oral hypoglycemic drugs; Z79.899 Other long term (current) drug therapy; Z91.048 Other nonmedicinal substance allergy status; Z96.651 Presence of right artificial knee joint; Z90.710 Acquired absence of both cervix and uterus; Z90.49 Acquired absence of other specified parts of digestive tract; Z90.722 Acquired absence of ovaries, bilateral; Z90.10 Acquired absence of unspecified breast and nipple; Z98.890 Other specified postprocedural states; Z99.89 Dependence on other enabling machines and devices
CPT/HCPCS: 27570; A9270; J1100; J1200; J1885; J2250; J2405; J3010; J7120; 01400; J2704

== ENCOUNTER 2021-02-05 07:50 | Day surgery (SDC) | payer BC ==
[~2021-02-05 07:50] MED LIST changes: +Propofol 200 MG/20 ML SDV ONE; +Sodium Chloride 0.9% 10 ML SDV IV PRN; +Sodium Chloride 0.9% 10 ML Syringe FLUSH PRN; +Sodium Chloride 0.9% 2.5 ML Syringe FLUSH PRN; +fentaNYL 100 MCG/2 ML SDV ONE
[2021-02-05] MEDS ORDERED: Propofol 200 MG/20 ML SDV ONE (07:54)
[2021-02-05] MEDS ORDERED: fentaNYL 250 MCG/5 ML SDV ONE (07:54)
--- NOTE | 2021-02-05 08:35 | PCM.PREANE ---
Preanesthetic Assessment - Procedure Proposed Procedure: Colonoscopy - Anesthesia/Transfusion/Family Hx Anesthesia History: Prior Anesthesia Without Reaction Other Type of Anesthesia Reaction Comment: requests SCOP patch because of motion sickness Transfusion History: No Prior Transfusion(s) - Review of Systems General: No Symptoms Pulmonary: No Symptoms (Quit smoking 1990) Cardiovascular: No Symptoms Gastrointestinal: No Symptoms (GERD controlled with diet and raising head of bed) Neurological: No Symptoms Other: Reports: None (Osteoporosis) - Physical Assessment NPO Status Date: 02/03/21 NPO Status Time: 17:00 (Solids, >3 hrs liq) Vital Signs: Last Vital Signs Temp 96.6 F L 02/05/21 08:08 Pulse 77 02/05/21 08:08 Resp 16 02/05/21 08:08 BP 127/76 02/05/21 08:08 Pulse Ox 98 02/05/21 08:08 Height: 5 ft 4 in Weight: 94.347 kg ASA Class: 2 Mental Status: Alert & Oriented x3 Airway Class: Mallampati = 2 Dentition: Reports: Normal Dentition Thyro-Mental Finger Breadths: 3 Mouth Opening Finger Breadths: 3 ROM/Head Extension: Full Lungs: Clear to Auscultation, Normal Respiratory Effort Cardiovascular: Regular Rate, Regular Rhythm - Allergies Allergies/Adverse Reactions: Allergies Allergy/AdvReac Type Severity Reaction Status Date / Time adhesive tape Allergy Redness Verified 02/05/21 08:12 No Known Drug Allergies Allergy Other Verified 02/05/21 08:12 - Acknowledgements Anesthesia Type Planned: General Anesthesia Pt an Appropriate Candidate for the Planned Anesthesia: Yes Alternatives and Risks of Anesthesia Discussed w Pt/Guardian: Yes Pt/Guardian Understands and Agrees with Anesthesia Plan: Yes PreAnesthesia Questionnaire HEENT History: Reports: Hard of Hearing Other HEENT History: has hearing aides but doesn't wear them Cardiovascular History: Reports: Heart Murmur, Other (See Below) Other Cardiovascular History: hx of palpitations due to a thyroid medication she was taking, has a heart murmur- recent visit to Cardioligist- was told it is "a small leak" Respiratory History: Reports: Sleep Apnea Other Respiratory History: states mild sleep apnea dx 10 years ago- has never used CPAP Gastrointestinal History: Reports: Other (See Below) Other Gastrointestinal History: occasional heartburn- takes Natalie pills Genitourinary History: Reports: None TANKROOM WORKER History: Reports: None Other OB/BYN History: Hyst with frederick oophorectomy (hx: breast cancer) Musculoskeletal History: Reports: Fracture Other Musculoskeletal History: hx of fx of radius/ulna and fx of tib-fib- no hardware Neurological History: Reports: Other (See Below) Other Neuro History: hx of motion sickness Psychiatric History: Reports: None Endocrine/Metabolic History: Reports: Obesity/BMI 30+ Hematologic History: Reports: None Immunologic History: Reports: None Oncologic (Cancer) History: Reports: Breast Dermatologic History: Reports: None - Infectious Disease History Infectious Disease History: Reports: Chicken Pox, Measles - Past Surgical History Head Surgeries/Procedures: Reports: None HEENT Surgical History: Reports: Adenoidectomy, Tonsillectomy Cardiovascular Surgical History: Reports: None Respiratory Surgical History: Reports: None GI Surgical History: Reports: Cholecystectomy, Colonoscopy Other GI Surgeries/Procedures: Lap Cholecystectomy Female Surgical History: Reports: Breast Biopsy, Breast Reconstruction, Hysterectomy, Mastectomy Other Female Surgeries/Procedures: Vaginal Lap assisted hysterectomy with Bilateral oophorectomy, breast lumpectomy x3, hx breast cancer, Right Radical Mastectomy- breast reconstruction is ungoing Endocrine Surgical History: Reports: None Neurological Surgical History: Reports: None Musculoskeletal Surgical History: Reports: Arthroscopic Knee, Knee Replacement, Other (See Below) Other Musculoskeletal Surgeries/Procedures:: Right Shoulder surgery (RTCR) R knee manipulation, scar tissue removal and debridement R knee, right TKA Oncologic Surgical History: Reports: Biopsy of Breast, Mastectomy Other Oncologic Surgeries/Procedures: right radical mastectomy - SUBSTANCE USE Tobacco Use Status *Q: Former Tobacco User Tobacco Use Within Last Twelve Months: No Recreational Drug Use History: No - HOME MEDS Home Medications: Home Meds Ascorbic Acid [Vitamin C] 1,000 mg PO DAILY 08/16/14 [History] Cholecalciferol (Vitamin D3) [Vitamin D3] 3,000 units PO DAILY 08/16/14 [History] resveratroL [Resveratrol] 100 mg PO DAILY 11/20/14 [History] Cyanocobalamin (Vitamin B12) [Vitamin B12] 1,000 mcg PO DAILY 03/09/17 [History] Biotin 1 cap PO DAILY 01/30/21 [History] Calcium Carbonate/Vitamin D3 [Calcium 600 mg-D3 20 Mcg Cplt] 1 cap PO BID 01/30/21 [History] Calcium/Vits D3/C/K2/Minerals [Bone Essentials Capsule] 1 cap PO ASDIRECTED 01/30/21 [History] Ibuprofen 200 - 400 mg PO ASDIRECTED PRN 01/30/21 [History] Medium Chain Triglycerides [Mct Oil] 1 cap PO DAILY 01/30/21 [History] [place] 1 cap PO DAILY 01/30/21 [History] Ubidecarenone [Co Q-10] 200 mg PO DAILY 01/30/21 [History] - CURRENT (IN HOUSE) MEDS Current Meds: Current Medications Lactated Ringer's (Ringers, Lactated) 1,000 mls @ 125 mls/hr IV ASDIRECTED YUE Last Admin: 02/05/21 08:11 Dose: 125 mls/hr Documented by: Sodium Chloride (Sodium Chloride 0.9% 10 Ml Syringe) 10 ml FLUSH ASDIRECTED PRN PRN Reason: Keep Vein Open Sodium Chloride (Sodium Chloride 0.9% 2.5 Ml Syringe) 2.5 ml FLUSH ASDIRECTED PRN PRN Reason: Keep Vein Open Sodium Chloride (Sodium Chloride 0.9% 10 Ml Syringe) 10 ml FLUSH ASDIRECTED PRN PRN Reason: Keep Vein Open Sodium Chloride (Sodium Chloride 0.9% 2.5 Ml Syringe) 2.5 ml FLUSH ASDIRECTED PRN PRN Reason: Keep Vein Open Sodium Chloride (Sodium Chloride 0.9% 10 Ml Sdv) 10 ml IV ASDIRECTED PRN PRN Reason: IV Use Discontinued Medications Fentanyl (Fentanyl 100 Mcg/2 Ml Sdv) Confirm Administered Dose 300 mcg .ROUTE .STK-MED ONE Stop: 02/05/21 07:31 Fentanyl (Fentanyl 250 Mcg/5 Ml Sdv) Confirm Administered Dose 250 mcg .ROUTE .STK-MED ONE Stop: 02/05/21 07:55 Propofol (Propofol 200 Mg/20 Ml Sdv) Confirm Administered Dose 1,200 mg .ROUTE .STK-MED ONE Stop: 02/05/21 07:30 Propofol (Propofol 200 Mg/20 Ml Sdv) Confirm Administered Dose 200 mg .ROUTE .STK-MED ONE Stop: 02/05/21 07:55
[2021-02-05] MEDS ORDERED: Glycopyrrolate 0.2 MG/ML SDV ONE (09:46)
[2021-02-05] MEDS ORDERED: ePHEDrine 50 MG/ML SDV ONE (09:46)
--- NOTE | 2021-02-05 10:11 | PCM.POSTAN ---
POST ANESTHESIA ASSESSMENT - MENTAL STATUS Mental Status: Alert, Oriented - VITAL SIGNS Vital Signs: Last Vital Signs Temp 96.6 F L 02/05/21 08:08 Pulse 77 02/05/21 08:08 Resp 16 02/05/21 08:08 BP 127/76 02/05/21 08:08 Pulse Ox 98 02/05/21 08:08 - RESPIRATORY Respiratory Status: Respiratory Rate WNL, Airway Patent, O2 Saturation Stable - CARDIOVASCULAR CV Status: Pulse Rate WNL, Blood Pressure Stable - GASTROINTESTINAL GI Status: No Symptoms - PAIN Pain Score: 0 - POST OP HYDRATION Hydration Status: Adequate & Stable
--- NOTE | 2021-02-05 10:13 | PCM48HPAN ---
Post Anesthesia Note - EVALUATION WITHIN 48HRS OF ANESTHETIC Vital Signs in Normal Range: Yes Patient Participated in Evaluation: Yes Respiratory Function Stable: Yes Airway Patent: Yes Cardiovascular Function Stable: Yes Hydration Status Stable: Yes Pain Control Satisfactory: Yes Nausea and Vomiting Control Satisfactory: Yes Mental Status Recovered: Yes Vital Signs: Last Vital Signs Temp 98.6 F 02/05/21 10:04 Pulse 96 02/05/21 10:04 Resp 16 02/05/21 10:04 BP 98/62 02/05/21 10:04 Pulse Ox 96 02/05/21 10:04 - COMMENTS/OBSERVATIONS Free Text/Narrative:: Pt doing well post-op. VSS. No apparent anesthetic complications. Dr. Emigdio New
--- NOTE | 2021-02-05 10:14 | PCM.OPNOTE ---
- General Post-Op/Procedure Note Date of Surgery/Procedure: 02/05/21 Operative Procedure(s): Screening colonoscopy Findings: Normal colonoscopy Pre Op Diagnosis: Encounter for screening colonoscopy Post-Op Diagnosis: same Anesthesia Technique: MAC Primary Surgeon: Nanda Arciniega Condition: Good
[2021-02-05 10:38] VITALS: BP 126/66; PULSE 88
--- NOTE | 2021-02-05 17:44 | OR ---
SURGEON: NANDA ARCINIEGA MD DATE OF PROCEDURE: 02/05/2021 PREOPERATIVE DIAGNOSIS: Screening colonoscopy. POSTOPERATIVE DIAGNOSIS: Screening colonoscopy. PROCEDURE PERFORMED: Screening colonoscopy. PRIMARY SURGEON: Nanda Arciniega MD ANESTHESIA: MAC. INSTRUMENT USED: Olympus colonoscope. EXTENT OF EXAM: To the cecum. PREPARATION: Good. LIMITATIONS: None. INDICATIONS FOR EXAMINATION: The patient is a 65-year-old female who presents for screening colonoscopy. I explained the procedure, expected perioperative course, and the risks. She verbalized understanding and wishes to proceed. PROCEDURE IN DETAIL: The patient was brought into the endoscopy suite and placed in a left lateral decubitus position. A time-out was completed verifying the patient's name, age, date of , allergies, and procedure to be performed. Monitored anesthesia care was induced and continuous oxygen was provided via nasal cannula throughout the procedure. After adequate sedation was achieved, a digital rectal exam was performed. This exam was within normal limits. A well-lubricated colonoscope was inserted in the rectum and advanced under direct visualization to the level of the cecum. The cecum was identified by both visual and anatomic landmarks. A photograph taken of the cecal cap. However, I was unable to retroflex the scope within the cecum due to looping of the scope more proximally. The scope was then fully withdrawn while examining the color, texture, anatomy, and integrity of the mucosa from the cecum to the anal canal. The findings were consistent with normal colonic mucosa. The scope was brought into the rectum and retroflexed to allow visualization of the anal canal opening. This appeared normal and a photograph was taken. The scope was then straightened out and fully withdrawn. The cecum to anus time was 15 minutes. The patient tolerated the procedure well and was transferred to the PACU in stable condition. ENDOSCOPIC DIAGNOSIS: Normal colonoscopy. RECOMMENDATIONS: Follow up for repeat colonoscopy in 10 years. RODRIGO / JAKOB /[id number]
== END 2021-02-05 10:36 | disposition home or self-care (01) ==
LOC: MW.SDS 07:50
PROVIDERS: ATTEND Surgery
DX: Z12.11 Encounter for screening for malignant neoplasm of colon (principal); K52.9 Noninfective gastroenteritis and colitis, unspecified; Z80.0 Family history of malignant neoplasm of digestive organs; G47.33 Obstructive sleep apnea (adult) (pediatric); E66.9 Obesity, unspecified; Z79.899 Other long term (current) drug therapy; Z91.048 Other nonmedicinal substance allergy status; Z98.890 Other specified postprocedural states; Z68.35 Body mass index [BMI] 35.0-35.9, adult
CPT/HCPCS: 45378; J2704; J3010; J3490; J7120; 00812